=== PATIENT | female | born 1950 | race Caucasian/White ===

== ENCOUNTER 2017-09-08 09:04 | Day surgery (SDC) | payer MEDICARE ==
[~2017-09-08] VITALS: Ht 165.1 cm; Wt 54.4 kg
--- NOTE | ~2017-09-08 | HP ---
PATIENT: JANE MOON MEDICAL RECORD: [id number] ACCOUNT: [id number] LOCATION:[facility] : 50 ADMISSION DATE: 09/08/17 HISTORY AND PHYSICAL EXAMINATION PREOPERATIVE HISTORY AND PHYSICAL HISTORY: Jane is a 66-year-old female with a sore throat, ear pain, hoarseness, and hemoptysis for few months, and a right-sided neck mass. ALLERGIES: No known drug allergies. PAST SURGICAL HISTORY: Includes partial hysterectomy. SOCIAL HISTORY: She is a smoker. PHYSICAL EXAMINATION: GENERAL: She is healthy-appearing. Mild hoarseness. FACE: Normal, symmetric, no lesions. EYES: Sclerae and conjunctivae are normal. EARS: Canals and TMs are normal. NOSE: No mass, polyps, or drainage. ORAL CAVITY AND OROPHARYNX: Normal. Tongue protrudes midline. NECK: She has a 3 cm right neck mass, level 3. Her flexible laryngoscopy reveals bulky mass involving both the lingual and laryngeal surface of epiglottis on the right side down the AE fold, possibly all the way to the false cord. She appears to have normal cord mobility. 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 PLAN: Laryngoscopy and biopsy for diagnosis. TRANSINT:[id number] Voice Confirmation ID: [id number] DOCUMENT ID: [id number] GHADA THOMAS MD at 1802 CC: [id number] DICTATION DATE: 09/04/17 1524 HARP REGULATOR: 09/04/17 1541 [address] [address] [id number] [place] [address]
--- NOTE | ~2017-09-08 | OP ---
PATIENT NAME: JANE NEWELL MEDICAL RECORD: [id number] :50 LOCATION:[facility] ADMISSION DATE: SURGEON: BRAD THOMAS MD DATE OF OPERATION: 09/08/2017 PREOPERATIVE DIAGNOSES: Laryngeal lesion, hoarseness, hemoptysis, and neck mass. POSTOPERATIVE DIAGNOSES: Laryngeal lesion, hoarseness, hemoptysis, and neck mass. PROCEDURE: Direct laryngoscopy with biopsy of supraglottic larynx. SURGEON: Brad Thomas MD ANESTHESIA: General orotracheal. BLOOD LOSS: 1 cc. COMPLICATIONS: None. DISPOSITION: Recovery stable. FINDINGS: Exophytic lesion involving almost the entire epiglottis, involve the vallecula, the base of the tongue a little bit on the right side, but less than a centimeter. Both false cords and the anterior aspect of both arytenoids, all of the cords themselves were spared. Some of the lateral aspect of the AE fold on the right side was involved with the apex and the piriform was clear bilaterally. DESCRIPTION OF PROCEDURE: She is brought to the operating room and placed in supine position, sedated and intubated by anesthesia. The eyes were taped. The table was turned 90 degrees. Head drape was applied and she was positioned for laryngoscopy. She is edentulous. A plastic upper tooth guard was placed and the oral cavity was examined. The base of tongue was palpated. We palpate the mass basically right at the epiglottis, but not really anything palpable in the base of the tongue. Kleinsasser J laryngoscope was inserted. Evaluated the posterior pharyngeal wall and lateral pharyngeal willis, which were normal. Postcricoid area was normal. The arytenoid posteriorly were normal. The piriforms on both sides were clear. The vallecula was involved with the tumor really indistinguishable from exophytic mass on the epiglottis, especially on the right side. The tumor extended on the laryngeal surface of the epiglottis not quite to the petiole, both false cords were involved with that tumor. The cords and subglottis were normal. The posterior larynx was normal as well. A 4 mm upbiting cup forceps was used to take several biopsies, half a dozen biopsies from the laryngeal surface of the epiglottis, false cord on the right side and the vallecula on the right side, but basically this is one continuous exophytic mass really with no very distinguishable landmarks of the supraglottic larynx. The airway was clear. There was really no obstruction of the airway. There was minimal bleeding. Afrin pledget was placed and removed before she was extubated. She was extubated, and transported to recovery in good condition. No complications. TRANSINT:[id number] Voice Confirmation ID: [id number] DOCUMENT ID: [id number] OPERATIVE REPORT [id number] JANE NEWELL, BRAD PAZ at 1711 CC: [id number] DICTATION DATE: 09/08/17 1341 OFFICE PROFESSIONAL: 09/08/17 1620 [facility] 09/08/17 [facility] [address] [place] [address]
[2017-09-08 09:34] LABS: HEMATOCRIT 33.9 % (36.0-48.0); HEMOGLOBIN 10.8 g/dL (12-16); MCH 27.1 pg (26.0-34.0); MCHC 31.9 g/dL (31.0-37.0); MCV 85.2 fL (80.0-100.0); MEAN PLATELET VOLUME 8.8 fL (7.4-10.4); RBC 3.98 10x6/uL (4.00-5.40); RDW 13.3 % (11.5-14.5); WBC 8.9 10x3/uL (4.8-10.8)
[2017-09-08 10:05] VITALS: BP 103/74; Ht 165.1 cm; Wt 54.4 kg
== END 2017-09-08 15:39 | disposition home or self-care (01) ==
LOC: D.OPS 09:04 → D.PAN 11:20 → D.OPS 11:30
PROVIDERS: Anesthesiology
DX: C32.1 Malignant neoplasm of supraglottis (principal); Z01.812 Encounter for preprocedural laboratory examination; F17.200 Nicotine dependence, unspecified, uncomplicated

== ENCOUNTER 2017-09-12 15:52 | Inpatient (IN) | payer MEDICARE ==
[~2017-09-12] VITALS: Ht 165.1 cm; Wt 54.4 kg
--- NOTE | ~2017-09-12 | OP ---
PATIENT NAME: JANE NEWELL MEDICAL RECORD: [id number] :50 LOCATION:D.[id number] ADMISSION DATE:09/13/17 SURGEON: ANA DALEY MD DATE OF OPERATION: 09/14/2017 PREOPERATIVE DIAGNOSES: 1. Difficulty swallowing. 2. Laryngeal tumor. 3. Need of radiation for the laryngeal tumor, which is going to make it very difficult for the patient to swallow in the future. POSTOPERATIVE DIAGNOSES: 1. Difficulty swallowing. 2. Laryngeal tumor. 3. Need of radiation for the laryngeal tumor, which is going to make it very difficult for the patient to swallow in the future. 4. Large paraesophageal hernia. 5. Rule out Aparicio esophagus. PROCEDURES: 1. Esophagogastroduodenoscopy with antral and distal esophageal biopsies. 2. Placement of left infraclavicular PowerPort via a cephalic vein cutdown under fluoroscopic guidance. 3. Immediate surgeon interpretation of the fluoroscopic images. OPERATIVE COURSE: The patient was conveyed to the operating room urgently on 09/14/2017. General anesthesia was induced by the anesthesia staff. A bite block was inserted. A gastroscope was inserted into the mouth. It was advanced easily into the hypopharynx. 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 I was able to intubate the esophagus easily as was the stomach and duodenum. Upon withdrawal, retroflexed and angulus views were obtained. Antral biopsies were obtained. I then cleansed the anterior abdominal wall skin. I was able to transilluminate the anterior abdominal wall. I was able to visualize the light from the gastroscope in the left upper quadrant. After cleansing the skin, skin incision was accomplished. Through the skin incision, I advanced the Angiocath and punctured the anterior surface of the fundus of the stomach. A wire was advanced down through the Angiocath. This was grasped with an endoscopic snare and was withdrawn through the mouth. The wire was then affixed to the pull-type gastrostomy tube, which was then pulled into place. The gastroscope was then advanced down through the esophagus into the stomach and I took an endoscopic photograph of the gastrostomy tube. The endoscope was then withdrawn into the distal esophagus. Distal esophageal biopsies were obtained. Hub and flange devices were attached. Attention was then turned to placement of the infraclavicular PowerPort. The left chest was sterilely prepped and draped. A transverse incision was accomplished inferior to the left clavicle. Sharp dissection was carried down to the level of the pectoralis fascia. A subcutaneous pocket was created in a caudad direction. I had removed some of the subcutaneous adipose tissue between the skin and the pectoralis muscle. I dissected in the deltopectoral groove. A generous cephalic vein was identified. Ties were placed on the cephalic vein laterally. A loose tie was placed medially. OPERATIVE REPORT [id number] JANE NEWELL No radiologist was present for this procedure. Static fluoroscopic images were obtained and are kept in the PACS system. The surgeon interpretation of the radiographic images is dictated within the body of this operative note. A small venotomy was accomplished between the ties. Through the venotomy, I advanced the PowerPort catheter. It was advanced under fluoroscopy to the cavoatrial junction. It was divided. It was attached to PowerPort. The locking device was firmly engaged. Some additional ties were placed around the cephalic vein medially. I then divided the cephalic vein between the ties. The port was placed in the subcutaneous pocket. Three-point fixation was performed with Prolene to prevent the port from flipping. I irrigated the port pocket. There was no bleeding. The subdermis was approximated with interrupted 3-0 Vicryl. The skin was approximated with a running intracuticular 4-0 Vicryl. A sterile dressing was applied after I percutaneously accessed the port with a Keys needle. It accessed easily. It flushed easily and aspirated dark, nonpulsatile blood. Images over the mediastinum revealed no radiographic evidence of complication. There was no pneumothorax. The tip of the PowerPort catheter was at the cavoatrial junction. There was no apparent kinking or twisting of the catheter. The patient was then extubated and conveyed to post-anesthesia care unit where she was in stable condition. TRANSINT:[id number] Voice Confirmation ID: [id number] DOCUMENT ID: [id number] ANA DALEY MD at 1612 CC: NELLY BATISTA MD, BETI CRAWLEY MD, MONTE,GHADA D and MOLLY [id number] DICTATION DATE: 09/14/171816 MARINE DIVER: 09/14/17 184 [facility] [place] 09/18/17 [place] [id number] [place] [id number]
--- NOTE | ~2017-09-12 | EC ---
PATIENT:JANE NEWELL DATE OF SERVICE: 09/13/17 SEX: F MEDICAL RECORD: [id number] DATE OF : 50 LOCATION:[facility] AGE OF PATIENT: 66 ADMISSION DATE: 09/13/17 REFERRING PHYSICIAN: INTERPRETING PHYSICIAN: AVA SARKAR MD ECHOCARDIOGRAM REPORT ECHO CHARGES 4 ECHO COMPLETE Date: 09/13 CLINICAL DIAGNOSIS: CHF ECHOCARDIOGRAPHIC MEASUREMENTS (adult normal given) AC root (d.<3.7cm) 2.7 cm LV Septum d (<1.2 cm> 1.3 cm Valve Excursion 1.6 cm LV Septum (systole) 1.6 cm Left Atria (s.<4.0cm> 3.0 cm LVPW d(<1.2cm) 1.2 cm RV (d.<2.3cm) 4.2 cm LVPW (sytole) 1.6 cm LV diastole(<5.6CM) 4.2 cm MV E-F(>70mm/sec) cm LV systole 2.8 cm LVOT Diameter 1.6 cm MV exc.(>10mm) 1.4 cm Est.ejection fraction (50-75%) % DOPPLER: LVIT cm/sec A 87.0 cm/sec E 101 cm/sec LA cm/sec RVSP 44 mmHg LVOT 118 cm/sec AOP1/2T m/s Asc. Ao 153 cm/sec RVOT cm/sec RA cm/sec PA cm/sec AV Gradient Peak 9.41 mmHg AV Mean 4.02 mmHg AV Area 1.6 cm MV Gradient Peak mmHg MV Mean mmHg MV Area cm COMMENTS: Motorcycle Delivery Driver: 2 MARTÍN CONTRERAS Winter Sports Manager: 4 Dr. Sarkar TAPE# PACS Pericardial Effusion N DATE OF SERVICE: PROCEDURE: Transthoracic echocardiogram. FINDINGS: 1. The patient has evidence of mild left ventricular hypertrophy. Inflow characteristics are normal. Left ventricular endocardial surface is not well visualized, but the function appears to be grossly normal. The ejection fraction is 60%. 2. Left atrium appears to be grossly normal. ECHOCARDIOGRAM REPORT [id number] JANE NEWELL 3. Aortic valve is normal. 4. The mitral valve is normal. 5. The tricuspid valve is normal with RVSP of 44 mmHg. 6. The right ventricle not well visualized, but grossly appears to be normal to mildly dilated. 7. The right atrium appears to be normal. 8. Pulmonic valve was not well visualized. CONCLUSION: The patient has evidence of hypertensive heart disease, preserved LV systolic function with grade II diastolic dysfunction. TRANSINT:[id number] Voice Confirmation ID: [id number] DOCUMENT ID: [id number] AVA SARKAR MD at 0927 CC: [id number] DICTATION DATE: 09/14/17 1049 WET MACHINE TENDER: 09/14/17 1106 ADM [id number] [place] [address]
[2017-09-12 21:34] LABS: BASOPHILS 0.2 % (0-2); EOSINOPHILS 0.6 % (0-7); HEMATOCRIT 36.1 % (36.0-48.0); IMMATURE GRANULOCYTES 0.4 % (0-5); LYMPHOCYTES 18.3 % (15-50); MCH 28.1 pg (26.0-34.0); MCHC 33.2 g/dL (31.0-37.0); MCV 84.5 fL (80.0-100.0); MONOCYTES 6.9 % (2-11); NEUTROPHILS 73.6 % (40-80); PLATELET COUNT 371 10x3/uL (130-400); RBC 4.27 10x6/uL (4.00-5.40); RDW 13.4 % (11.5-14.5); WBC 11.1 10x3/uL (4.8-10.8)
[2017-09-12 21:44] LABS: APTT 28.9 SECONDS (22.8-39.4); INR 1.01 (0.85-1.17); PROTIME 12.9 SECONDS (11.6-15.0)
[2017-09-12 21:53] LABS: ALBUMIN 3.6 g/dL (3.4-5.0); ANION GAP 14.4 mmol/L (8-16); BILIRUBIN - TOTAL 0.7 mg/dL (0.2-1.3); CALCIUM 10.3 mg/dL (8.5-10.1); CARBON DIOXIDE 29.8 mmol/L (21.0-32.0); CREATININE - SERUM 1.1 mg/dL (0.6-1.3); POTASSIUM - SERUM 4.2 mmol/L (3.5-5.1); PROTEIN - SERUM 8.6 g/dL (6.4-8.2)
[2017-09-13 00:59] LABS: APPEARANCE HAZY (CLEAR); COLOR YELLOW (YELLOW); GLUCOSE NEGATIVE (NEGATIVE); NITRITE NEGATIVE (NEGATIVE); PROTEIN NEGATIVE (NEGATIVE); SPECIFIC GRAVITY 1.015 (1.005-1.020)
[2017-09-13 01:00] LABS: BILIRUBIN NEGATIVE (NEGATIVE); KETONE MODERATE mg/dL (NEGATIVE); UROBILINOGEN NORMAL (NORMAL)
[2017-09-13 02:15] VITALS: BP 126/80
[2017-09-13 04:11] VITALS: BP 118/98
[2017-09-13 07:53] VITALS: BP 136/83
[2017-09-13 10:11] VITALS: BMI 19.9
[2017-09-13 11:39] VITALS: Ht 165.1 cm; Wt 54.4 kg
[2017-09-13 12:28] VITALS: BP 147/76
[2017-09-13 13:10] LABS: % SATURATION 9 % (15-55); IRON 23 ug/dl (35-150); TOTAL IRON BIND CAPACITY 237 ug/dl (260-445); UNSAT IRON BIND CAPACITY 214 ug/dl (150-375)
[2017-09-13 13:23] LABS: FERRITIN 392 ng/mL (3-244); LDH 132 U/L (81-234)
[2017-09-13 16:00] VITALS: BP 106/69
[2017-09-13 20:55] VITALS: BP 131/81
[2017-09-13 22:30] LABS: ALBUMIN 2.7 g/dL (3.4-5.0); CALCIUM 8.7 mg/dL (8.5-10.1); CARBON DIOXIDE 26.2 mmol/L (21.0-32.0); CHLORIDE - SERUM 103 mmol/L (98-107); GLUCOSE 74 mg/dL (74-106); MAGNESIUM - SERUM 1.5 mg/dL (1.8-2.4); PHOSPHOROUS 3.4 mg/dL (2.5-4.9); POTASSIUM - SERUM 3.8 mmol/L (3.5-5.1); PRE-ALBUMIN 13.1 mg/dL (18.0-35.7); SODIUM 139 mmol/L (136-145); eGFR NON AFRICAN AMERICAN 89 mL/min (90-120)
[2017-09-13 22:37] LABS: CALC OSMOLALITY 277 mosm/kg (275-300); CREATININE - SERUM 0.7 mg/dL (0.6-1.3); UREA NITROGEN 16 mg/dL (7-18)
[2017-09-14 00:47] VITALS: BP 136/79
[2017-09-14 05:04] VITALS: BP 124/74
[2017-09-14 05:05] LABS: BASOPHILS 0.1 % (0-2); HEMOGLOBIN 9.8 g/dL (12-16); IMMATURE GRANULOCYTES 0.5 % (0-5); LYMPHOCYTES 14.2 % (15-50); MCH 27.1 pg (26.0-34.0); MCHC 31.6 g/dL (31.0-37.0); MCV 85.9 fL (80.0-100.0); MEAN PLATELET VOLUME 9.2 fL (7.4-10.4); MONOCYTES 7.8 % (2-11); NEUTROPHILS 76.4 % (40-80); RBC 3.61 10x6/uL (4.00-5.40); RDW 13.4 % (11.5-14.5); WBC 8.8 10x3/uL (4.8-10.8)
[2017-09-14 05:07] LABS: PLATELET COUNT 283 10x3/uL (130-400)
[2017-09-14 05:26] LABS: ALBUMIN 2.8 g/dL (3.4-5.0); ALKALINE PHOSPHATASE 102 U/L (46-116); CALCIUM 8.5 mg/dL (8.5-10.1); CHLORIDE - SERUM 102 mmol/L (98-107); CREATININE - SERUM 0.6 mg/dL (0.6-1.3); POTASSIUM - SERUM 3.9 mmol/L (3.5-5.1); PROTEIN - SERUM 6.8 g/dL (6.4-8.2); SODIUM 138 mmol/L (136-145); eGFR NON AFRICAN AMERICAN > 90 mL/min (90-120)
[2017-09-14 05:32] LABS: ALT (SGPT) 20 U/L (10-68); CALC OSMOLALITY 272 mosm/kg (275-300); GLUCOSE 70 mg/dL (74-106); UREA NITROGEN 11 mg/dL (7-18)
[2017-09-14 08:04] VITALS: BP 153/83
[2017-09-14 11:55] VITALS: BP 146/81
[2017-09-14 21:46] VITALS: BP 156/90
[2017-09-15] VITALS (7 sets, daily range): BP systolic 150–175; BP diastolic 74–98
[2017-09-15 05:18] LABS: CALCIUM 8.5 mg/dL (8.5-10.1); CARBON DIOXIDE 24.1 mmol/L (21.0-32.0); CHLORIDE - SERUM 101 mmol/L (98-107); CREATININE - SERUM 0.7 mg/dL (0.6-1.3); MAGNESIUM - SERUM 1.6 mg/dL (1.8-2.4); PHOSPHOROUS 3.4 mg/dL (2.5-4.9); POTASSIUM - SERUM 3.9 mmol/L (3.5-5.1); SODIUM 135 mmol/L (136-145); eGFR NON AFRICAN AMERICAN 89 mL/min (90-120)
[2017-09-15 05:25] LABS: CALC OSMOLALITY 267 mosm/kg (275-300); GLUCOSE 106 mg/dL (74-106); UREA NITROGEN 6 mg/dL (7-18)
[2017-09-15 08:58] LABS: BASOPHILS 0 % (0-2); EOSINOPHILS 0.1 % (0-7); HEMATOCRIT 30.3 % (36.0-48.0); HEMOGLOBIN 9.6 g/dL (12-16); IMMATURE GRANULOCYTES 0.7 % (0-5); LYMPHOCYTES 6.1 % (15-50); MCH 27.3 pg (26.0-34.0); MCHC 31.7 g/dL (31.0-37.0); MCV 86.1 fL (80.0-100.0); MEAN PLATELET VOLUME 9.3 fL (7.4-10.4); MONOCYTES 5.6 % (2-11); NEUTROPHILS 87.5 % (40-80); PLATELET COUNT 290 10x3/uL (130-400); RBC 3.52 10x6/uL (4.00-5.40); RDW 13.5 % (11.5-14.5)
[2017-09-15 09:12] LABS: WBC 13.1 10x3/uL (4.8-10.8)
[2017-09-16 04:48] VITALS: BP 168/94
[2017-09-16 05:50] LABS: BASOPHILS 0.1 % (0-2); EOSINOPHILS 0.2 % (0-7); IMMATURE GRANULOCYTES 0.7 % (0-5); MCH 27.4 pg (26.0-34.0); MCHC 32.8 g/dL (31.0-37.0); MEAN PLATELET VOLUME 9.3 fL (7.4-10.4); MONOCYTES 3.9 % (2-11); NEUTROPHILS 87.1 % (40-80); RDW 13.5 % (11.5-14.5); WBC 12.8 10x3/uL (4.8-10.8)
[2017-09-16 06:14] LABS: CALC OSMOLALITY 256 mosm/kg (275-300); CALCIUM 9.2 mg/dL (8.5-10.1); CARBON DIOXIDE 23.3 mmol/L (21.0-32.0); CHLORIDE - SERUM 94 mmol/L (98-107); CREATININE - SERUM 0.6 mg/dL (0.6-1.3); GLUCOSE 112 mg/dL (74-106); MAGNESIUM - SERUM 1.7 mg/dL (1.8-2.4); POTASSIUM - SERUM 3.5 mmol/L (3.5-5.1); SODIUM 129 mmol/L (136-145); UREA NITROGEN 5 mg/dL (7-18); eGFR NON AFRICAN AMERICAN > 90 mL/min (90-120)
[2017-09-16 06:18] LABS: PHOSPHOROUS 2.3 mg/dL (2.5-4.9)
[2017-09-16 07:01] LABS: HEMOGLOBIN 11.8 g/dL (12-16); MCV 83.5 fL (80.0-100.0); PLATELET COUNT 354 10x3/uL (130-400); RBC 4.31 10x6/uL (4.00-5.40)
[2017-09-16 07:30] VITALS: BP 98/80
[2017-09-16 08:20] LABS: FOLATE (FOLIC ACID) - SERUM 16.9 ng/mL (>3.0)
[2017-09-16 12:25] VITALS: BP 129/82
[2017-09-16 16:32] VITALS: BP 117/81
[2017-09-16 20:00] VITALS: BP 130/87
[2017-09-17 04:00] VITALS: BP 162/84
[2017-09-17 04:29] LABS: BASOPHILS 0.1 % (0-2); EOSINOPHILS 0.8 % (0-7); HEMATOCRIT 27.6 % (36.0-48.0); HEMOGLOBIN 9.1 g/dL (12-16); IMMATURE GRANULOCYTES 0.6 % (0-5); LYMPHOCYTES 5.9 % (15-50); MCH 26.9 pg (26.0-34.0); MCV 81.7 fL (80.0-100.0); MEAN PLATELET VOLUME 9.1 fL (7.4-10.4); MONOCYTES 5.5 % (2-11); NEUTROPHILS 87.1 % (40-80); PLATELET COUNT 280 10x3/uL (130-400); RBC 3.38 10x6/uL (4.00-5.40); RDW 13.4 % (11.5-14.5); WBC 13.9 10x3/uL (4.8-10.8)
[2017-09-17 04:51] LABS: CALCIUM 8.1 mg/dL (8.5-10.1); CARBON DIOXIDE 28.4 mmol/L (21.0-32.0); CHLORIDE - SERUM 95 mmol/L (98-107); CREATININE - SERUM 0.5 mg/dL (0.6-1.3); GLUCOSE 115 mg/dL (74-106); MAGNESIUM - SERUM 1.8 mg/dL (1.8-2.4); PHOSPHOROUS 2.3 mg/dL (2.5-4.9); SODIUM 128 mmol/L (136-145); eGFR NON AFRICAN AMERICAN > 90 mL/min (90-120)
[2017-09-17 05:13] LABS: CALC OSMOLALITY 256 mosm/kg (275-300); POTASSIUM - SERUM 2.8 mmol/L (3.5-5.1); UREA NITROGEN 9 mg/dL (7-18)
[2017-09-17 07:59] VITALS: BP 164/93
[2017-09-17 12:22] VITALS: BP 144/83
[2017-09-17 16:23] VITALS: BP 156/84
[2017-09-17 20:49] VITALS: BP 170/89
[2017-09-18 00:07] VITALS: BP 175/79
[2017-09-18 04:39] VITALS: BP 163/90
[2017-09-18 08:07] VITALS: BP 185/95
[2017-09-18 08:10] LABS: BASOPHILS 0 % (0-2); EOSINOPHILS 1.2 % (0-7); IMMATURE GRANULOCYTES 1.3 % (0-5); LYMPHOCYTES 6.1 % (15-50); MCH 27.2 pg (26.0-34.0); MCHC 33.3 g/dL (31.0-37.0); MCV 81.6 fL (80.0-100.0); MEAN PLATELET VOLUME 8.6 fL (7.4-10.4); MONOCYTES 5.1 % (2-11); NEUTROPHILS 86.3 % (40-80); PLATELET COUNT 270 10x3/uL (130-400); RBC 3.31 10x6/uL (4.00-5.40); RDW 13.3 % (11.5-14.5)
[2017-09-18 12:29] VITALS: BP 194/99
[2017-09-18] MEDS ORDERED: ALBUTEROL2.5 MG/3 M INH (14:02)
== END 2017-09-18 15:38 | disposition home health service (06) | DRG 146 ==
LOC: D.ER 15:52 → D.MS 09-13 00:31
PROVIDERS: Family Medicine; Internal Medicine Nephrology; Surgery
PROC: 0JH63WZ Insertion of Totally Implantable Vascular Access Device into Chest Subcutaneous Tissue and Fascia, Percutaneous Approach (ICD-10-PCS; 2017-09-14)
PROC: 02HV33Z Insertion of Infusion Device into Superior Vena Cava, Percutaneous Approach (ICD-10-PCS; 2017-09-14)
PROC: B5181ZA Fluoroscopy of Superior Vena Cava using Low Osmolar Contrast, Guidance (ICD-10-PCS; 2017-09-14)
PROC: 0DB78ZX Excision of Stomach, Pylorus, Via Natural or Artificial Opening Endoscopic, Diagnostic (ICD-10-PCS; principal; 2017-09-14 08:30)
PROC: 0DB38ZX Excision of Lower Esophagus, Via Natural or Artificial Opening Endoscopic, Diagnostic (ICD-10-PCS; 2017-09-14 08:30)
PROC: 0DH63UZ Insertion of Feeding Device into Stomach, Percutaneous Approach (ICD-10-PCS; 2017-09-14 08:30)
DX: C32.9 Malignant neoplasm of larynx, unspecified (principal); E43 Unspecified severe protein-calorie malnutrition; Z68.1 Body mass index [BMI] 19.9 or less, adult; R64 Cachexia; E86.0 Dehydration; R13.10 Dysphagia, unspecified; Z87.891 Personal history of nicotine dependence; D50.9 Iron deficiency anemia, unspecified

== ENCOUNTER 2018-04-14 10:15 | Outpatient (CLI) | payer MEDICARE ==
[~2018-04-14] VITALS: Ht 165.1 cm; Wt 54.1 kg
[~2018-04-14 10:15] MED LIST: ALBUTEROL2.5 MG/3 M INH
[2018-04-14 10:54] VITALS: BP 117/80; Ht 165.1 cm; Wt 54.1 kg
== END 2018-04-14 17:08 | disposition home or self-care (01) ==
LOC: D.OPS 10:15
DX: D64.9 Anemia, unspecified (principal); Z01.812 Encounter for preprocedural laboratory examination